=== PATIENT | female | born 1940 | race Caucasian/White ===

== ENCOUNTER 2022-07-16 10:42 | Emergency (ER) | payer MEDICARE, OTHER, SELFPAY ==
--- NOTE | ~2022-07-16 | XR_ITS ---
EXAMINATION: XR chest 2V DATE: 07/16/2022 11:38 INDICATION: Cough and shortness of breath. TECHNIQUE: Frontal and lateral views of the chest were obtained. COMPARISON: None. FINDINGS: There are airspace opacities in right mid and lower lung zones. There are coarse interstiti al opacities throughout the lungs. No pleural effusion or pneumothorax. The heart size is normal. The re is a moderate-sized hiatal hernia. Surgical clips in the right upper quadrant are likely from chol ecystectomy. IMPRESSION: 1. Diffuse lung disease, likely at least predominantly chronic lung disease. Pneumonia cannot be excl uded. 2. Moderate-sized hiatal hernia. Reviewed, dictated and finalized at location A. [employer] ANALYST IMPRESSION: 1. Diffuse lung disease, likely at least predominantly chronic lung disease. Pn eumonia cannot be excluded. 2. Moderate-sized hiatal hernia.
--- NOTE | 2022-07-16 10:46 | ED.URI ---
HPI - URI/Sore Throat General Chief Complaint: Upper Respiratory Infection Stated Complaint: Shortness of Breath Time Seen by Provider: 07/16/22 11:19 Source: patient and RN notes reviewed Mode of arrival: ambulatory Limitations: no limitations History of Present Illness HPI Narrative: 81-year-old female presents concern for sore throat, cough, fatigue for 1 week. She reports a history of respiratory failure, another instance of being hospitalized for 6 weeks for COVID for which she is now on 6L nasal cannula at baseline. 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 She denies fever, chills, sweats, body aches. Reports exertional shortness of breath. Reports when she is active her SpO2 drops. MD elicited complaint: cough Related Data Home Medications Medication Instructions Recorded Confirmed albuterol sulfate 90 mcg/actuation 2 puff inhalation Q4-6H PRN 07/16/22 07/16/22 aerosol inhaler Shortness Of Breath benzonatate 100 mg capsule 100 mg PO TID PRN Cough 07/16/22 07/16/22 diltiazem HCl 180 mg 180 mg PO DAILY 07/16/22 07/16/22 capsule,extended release 24 hr famotidine 40 mg tablet 40 mg PO DAILY 07/16/22 07/16/22 fluticasone propionate 50 50 mcg intranasal DAILY 07/16/22 07/16/22 mcg/actuation nasal spray,suspension furosemide 40 mg tablet 40 mg PO DAILY 07/16/22 07/16/22 irbesartan 150 mg tablet 150 mg PO DAILY 07/16/22 07/16/22 levothyroxine 100 mcg tablet 100 mcg PO DAILY 07/16/22 07/16/22 (Synthroid) pantoprazole 40 mg tablet,delayed 40 mg PO DAILY 07/16/22 07/16/22 release umeclidinium 62.5 mcg/actuation 62.5 mcg inhalation DAILY 07/16/22 07/16/22 blister powder for inhalation (Incruse Ellipta) Allergies Allergy/AdvReac Type Severity Reaction Status Date / Time No Known Allergies Allergy Verified 07/16/22 11:54 Review of Systems Review of Systems: CONSTITUTIONAL: Reports malaise, fatigue. Denies chills, sweats, or fever. EYES: Denies visual changes, redness, or discharge. ENT: Reports rhinorrhea, congestion, and sore throat. Denies sinus pain, otalgia CARDIOVASCULAR: Denies chest pain, palpitations, or edema. RESPIRATORY: Reports cough, exertional dyspnea. GASTROINTESTINAL: Denies abdominal pain, nausea, vomiting, diarrhea SKIN: Denies rash or itching. MUSCULOSKELETAL: Denies myalgia. NEUROLOGIC: Denies headache. All systems reviewed & are unremarkable except as noted in HPI and below PMFSH Comments At time of signature, agree with nursing past medical, surgical, social and family history. There is no relevant family history pertinent to the presenting complaint Exam Narrative: GENERAL: Nontoxic-appearing and in no acute distress. HEAD: Normocephalic EYES: PERRLA, conjunctivae clear ENT: Nares clear, clear discharge. Mucous membranes moist. TM pearly [place] with dull light reflex bilaterally; no tragal tenderness. Oropharynx not erythematous without lesions. Tonsils not enlarged and without exudate, no drooling, no hoarseness, no trismus, uvula midline. NECK: Supple. No lymphadenopathy CHEST: Fine crackles in the bases bilaterally, otherwise Clear to auscultation, breath sounds equal. No wheezing, rhonchi, rales, or stridor. No respiratory distress, speaks in full sentences. HEART: Regular rate and rhythm. No murmur heard. SKIN: Warm, dry, no rash. NEURO: Alert and oriented x3. PSYCH: Normal mood and affect Course Course Emergency Course: Patient is aware of diagnosis, understands and agrees to treatment plan. Anticipatory guidance given. Patient agrees to follow-up as directed and is aware of reasons to seek care at the emergency department. Portions of this record may have been created with voice recognition software Level of Care: Express Care Visit Vital Signs Vital signs: Reviewed. MDM - URI/Sore Throat MDM Narrative Medical decision making narrative: Differential diagnosis considered: Perales virus, strep pharyngitis, allergic rhinitis, upper respiratory tract infection
[2022-07-16 10:53] VITALS: BP 117/61; PULSE 93; RESP 20; TEMP 37.4; O2SAT 100
[2022-07-16 11:00] VITALS: BP 117/61; PULSE 93; RESP 20; TEMP 37.4; O2SAT 100
== END 2022-07-16 12:00 | disposition home or self-care (01) ==
PROVIDERS: Emergency Provider Nurse Practitioner
DX: J06.9 Acute upper respiratory infection, unspecified (principal); R05.9 Cough, unspecified; Z20.822 Contact with and (suspected) exposure to COVID-19; J44.9 Chronic obstructive pulmonary disease, unspecified; Z96.642 Presence of left artificial hip joint; Z85.118 Personal history of other malignant neoplasm of bronchus and lung; Z92.3 Personal history of irradiation
CPT/HCPCS: 71046; 87081; 87426; 87804; 87880; 99213; C9803; G0463